=== PATIENT | female | born 1970 | race Caucasian/White ===

== ENCOUNTER 2019-05-03 07:33 | Day surgery (SDC) | payer BC ==
[2019-05-03] MEDS ORDERED: Dextrose 5%-Lactated Ringers 1,000 ML IV SCH (08:00)
[2019-05-03] MEDS ORDERED: Glycopyrrolate 0.2 MG/ML 2 ML SDV IVPUSH ONE (08:30)
[2019-05-03] MEDS ORDERED: Midazolam 1 MG/ML 2 ML SDV ONE (09:20)
[2019-05-03] MEDS ORDERED: fentaNYL 100 MCG/2 ML SDV ONE (09:20)
[2019-05-03] MEDS ORDERED: Propofol 200 MG/20 ML SDV ONE (09:20)
--- NOTE | 2019-05-10 14:25 | OR ---
DATE OF PROCEDURE: 05/03/2019 PREOPERATIVE DIAGNOSIS: Progressive intolerance of laparoscopic adjustable gastric band. POSTOPERATIVE DIAGNOSIS: Progressive intolerance to laparoscopic adjustable gastric band associated with: 1. Extensive erosion of band into the lumen of the stomach. 2. Marked esophageal dilation of above band. 3. Mild antral gastritis. OPERATIVE PROCEDURE: Esophagogastroduodenoscopy with antral biopsies for CLOtest. ANESTHESIA: IV sedation. INDICATION FOR PROCEDURE: This is a 48-year-old status post laparoscopic adjustable gastric band placement at [facility] in [place] in January 2010. Recently, she has had increasing problems with severe reflux-type symptoms as well as significant weight regain. The plan is to proceed with upper GI endoscopy with biopsies as indicated. Potential risks including bleeding and perforation were discussed and the patient wishes to proceed. DETAILS OF PROCEDURE: The patient was taken to the operating room and placed in a left lateral decubitus position. IV sedation was administered, after which the GI endoscope was passed orally through the length of the esophagus and stomach with retroflexion view of the fundus, thereafter through the pyloric channel into the proximal duodenum. Findings included normal hypopharynx, larynx, upper esophageal sphincter, and esophageal body. As one entered into the more distal esophagus, there was a quite striking dilation present along with retained food and bile within the stomach indicating development of esophageal dysmotility above the band. As one passed through the imprint of the band, the gastric antrum appeared to be somewhat reddened but as one body of the stomach and retroflexion was used to look back toward the banded area, there was a broad area of band erosion with roughly curled at the band circumference now being within the lumen of the stomach. Apart from that, there was some mild antral gastritis and normal pyloric channel and proximal duodenum. At this point, biopsies were obtained from the gastric antrum, sent for CLOtest for H. pylori. Minimal bleeding from the biopsy sites was seen and procedure was then concluded. At this point, we will contact the patient's insurance carrier regarding prior authorization of the laparoscopic adjustable gastric band removal along with closure of the gastric perforation. The patient is on Enbrel for rheumatoid arthritis and this may impair healing of a wound closure, and given this and extent of the erosion, a resectional procedure may be preferable in this case and that will be determined intraoperatively. Her insurance carrier will be contacted regarding this issue. Bennie Shrestha MD /[phone]
== END 2019-05-03 10:42 | disposition home or self-care (01) ==
LOC: JP.SDS 07:33
PROVIDERS: ATTEND Surgery
DX: K95.09 Other complications of gastric band procedure (principal); K29.70 Gastritis, unspecified, without bleeding; K21.9 Gastro-esophageal reflux disease without esophagitis; K22.4 Dyskinesia of esophagus; M06.9 Rheumatoid arthritis, unspecified; R63.5 Abnormal weight gain; Z79.899 Other long term (current) drug therapy
CPT/HCPCS: 43239; 81025; 87081; J2250; J2704; J3010; J3490; J7042

== ENCOUNTER 2019-09-02 07:12 | Inpatient (IN) | payer BC ==
[2019-09-02] MEDS ORDERED: Acetaminophen 500 MG Tab PO ONE (07:15)
[2019-09-02] MEDS ORDERED: Celecoxib 200 MG Cap PO ONE (07:15)
[2019-09-02] MEDS ORDERED: Gabapentin 300 MG Cap PO ONE (07:15)
[2019-09-02] MEDS ORDERED: Scopolamine 1.5 MG Transdermal Patch TRDERM ONE (07:15)
[2019-09-02] MEDS ORDERED: Rocuronium 50 MG/5 ML Vial ONE (07:28)
[2019-09-02] MEDS ORDERED: Glycopyrrolate 0.2 MG/ML 5 ML MDV ONE (07:28)
[2019-09-02] MEDS ORDERED: Succinylcholine 200 MG/10 ML MDV ONE (07:28)
[2019-09-02] MEDS ORDERED: Neostigmine Methylsulfate 1 MG/ML 5 ML Syringe ONE (07:28)
[2019-09-02] MEDS ORDERED: Dexamethasone 4 MG/ML SDV ONE (07:28)
[2019-09-02] MEDS ORDERED: Propofol 200 MG/20 ML SDV ONE (07:28)
[2019-09-02] MEDS ORDERED: Ondansetron 4 MG/2 ML SDV ONE (07:28)
[2019-09-02] MEDS ORDERED: fentaNYL 250 MCG/5 ML SDV ONE (07:28)
[2019-09-02] MEDS ORDERED: Dextrose 5%-Lactated Ringers 1,000 ML IV SCH (07:30)
[2019-09-02] MEDS ORDERED: Ketamine 50 MG in Sodium Chloride 0.9% 49.5 ML IV SCH (08:30)
[2019-09-02] MEDS ORDERED: Ketamine 500 MG/5 ML MDV IV SCH (08:30)
[2019-09-02] MEDS ORDERED: Lidocaine 2% 100 MG/5 ML Syringe IVPUSH SCH (08:30)
[2019-09-02] MEDS ORDERED: cefOXitin 2 GM in Sodium Chloride 0.9% 50 ML IV ONE (08:30)
[2019-09-02] MEDS ORDERED: cefOXitin 2 GM Vial ONE (09:35)
[2019-09-02] MEDS ORDERED: cefOXitin 2 GM in Sodium Chloride 0.9% 50 ML IV SCH (10:00)
[2019-09-02] MEDS ORDERED: ePHEDrine 50 MG/ML SDV ONE (10:50)
[2019-09-02] MEDS ORDERED: Lactated Ringers 1,000 ML ONE (10:55)
[2019-09-02] MEDS ORDERED: hydrOXYzine HCL 100 MG/2 ML SDV IM ONE (12:53)
[2019-09-02] MEDS ORDERED: HYDROmorphone 0.5 MG/0.5 ML Syringe IVPUSH PRN (14:29)
[2019-09-02] MEDS ORDERED: Labetalol 20 MG/4 ML Syringe IVPUSH PRN (14:29)
[2019-09-02] MEDS ORDERED: diphenhydrAMINE 50 MG/ML SDV IVPUSH PRN (14:29)
[2019-09-02] MEDS ORDERED: HYDROmorphone 1 MG/ML Syringe IV PRN (14:29)
[2019-09-02] MEDS ORDERED: Ondansetron 4 MG/2 ML SDV IVPUSH PRN (14:29)
[2019-09-02] MEDS ORDERED: hydrOXYzine HCL 100 MG/2 ML SDV IM PRN (14:29)
[2019-09-02] MEDS ORDERED: Metoclopramide 10 MG/2 ML SDV IVPUSH PRN (14:29)
[2019-09-02] MEDS: Lidocaine 0.4%/D5W 2 GM/500 ML BAG IV SCH (14:36)
[2019-09-02] MEDS: Acetaminophen 325 MG Tab PO SCH ×2 (15:54→21:47)
[2019-09-02] MEDS ORDERED: Pantoprazole 40 MG Vial IVPUSH SCH (16:00)
[2019-09-02] MEDS ORDERED: MVI, Adult with Vitamin K 10 ML, Thiamine 200 MG, Chromium/Copper/Mang/Selen/Zn 1 ML in... IV SCH ×4 (16:00)
[2019-09-02] MEDS: cefOXitin 2 GM in Sodium Chloride 0.9% 50 ML IV SCH ×2 (16:34→21:46)
[2019-09-02] MEDS: Heparin Sodium 5,000 Units/ML Vial SUBCUT SCH (19:37)
[2019-09-02] MEDS: cycloSPORINE Ophth Drops U/D Box of 30 EYEBOTH SCH (20:42)
[2019-09-02] MEDS: Gabapentin 250 MG/5 ML Solution ML 470 ML Bottle PO SCH (20:43)
[2019-09-02] MEDS: Dextrose 5%-Lactated Ringers 1,000 ML IV SCH (23:06)
[2019-09-03] MEDS: Acetaminophen 325 MG Tab PO SCH ×4 (03:59→21:01)
[2019-09-03] MEDS: cefOXitin 2 GM in Sodium Chloride 0.9% 50 ML IV SCH ×3 (04:00→15:29)
[2019-09-03] MEDS ORDERED: Iopamidol 612 MG/ML 50 ML SDV PO ONE (04:01)
--- NOTE | 2019-09-03 05:07 | CRLCR ---
Indication: Status post Nam-en-Y gastric bypass Technique: KUB 2 view Comparison: None Findings/Impression: : Two views of the abdomen demonstrate oral contrast within the distal esophagus and small bowel. There may be a small amount of contrast in the gastric pouch. No definite evidence for oral contrast extravasation. DOREEN drain projects in the left upper quadrant. Nonspecific bowel gas pattern. Dictated by Becky Arce MD @ Sep 03 2019 5:03AM Signed by Dr. Becky Arce @ Sep 03 2019 5:05AM
[2019-09-03] MEDS: Dextrose 5%-Lactated Ringers 1,000 ML IV SCH ×2 (05:15→13:36)
[2019-09-03] MEDS ORDERED: Ondansetron 4 MG Tab.DIS PO PRN (07:46)
[2019-09-03] MEDS: Celecoxib 200 MG Cap PO SCH (08:19)
[2019-09-03] MEDS: Heparin Sodium 5,000 Units/ML Vial SUBCUT SCH ×2 (08:20→20:18)
[2019-09-03] MEDS: cycloSPORINE Ophth Drops U/D Box of 30 EYEBOTH SCH ×2 (08:22→20:18)
[2019-09-03] MEDS: SCOPOLAMINE PATCH CHECK TOP SCH (08:22)
[2019-09-03] MEDS: Gabapentin 250 MG/5 ML Solution ML 470 ML Bottle PO SCH ×3 (08:24→20:18)
[2019-09-03] MEDS: DROSPIRENONE PO SCH (09:02)
[2019-09-03] MEDS: ESTRADIOL PO SCH (09:02)
[2019-09-03] MEDS: Lidocaine 0.4%/D5W 2 GM/500 ML BAG IV SCH (09:35)
--- NOTE | 2019-09-03 10:18 | PN ---
DATE OF SERVICE: 09/03/2019 SUBJECTIVE: Jody is postop day #1. She reports her pain is controlled. She has been up ambulating. Oral intake 720, urine output 1000. Vital signs have been stable. Pain has been controlled. She has no questions or concerns. OBJECTIVE: GENERAL: Jody is a 49-year-old female. VITAL SIGNS: TPR is 98.1, 88, 15, blood pressure 138/86. HEENT: Negative. NECK: Supple. HEART: Regular rate and rhythm. LUNGS: Clear. ABDOMEN: Dressings dry and intact. Abdominal binder is on and DOREEN drain is draining a light pink drainage of 65 mL. EXTREMITIES: Without peripheral edema. ASSESSMENT: Laparoscopic removal of gastric band device and gastric bypass for laparoscopic band erosion and stomach not safely reconstructed. Date of surgery 09/02/2019. Surgeon, Bennie Shrestha MD. PLAN: 1. Communication order 3 med cups per hour or 1 every 20 minutes, record at bedtime. 2. Dressing off, may shower. 3. Step 2 gastric bypass diet with no cereal. Decrease D5LR to 100 mL per hour. 4. Restart her Angeliq 0.25 mg-0.5 mg tablet daily. 5. Zofran ODT 4 mg every 4 hours p.r.n. nausea, vomiting. 6. Good pulmonary toilet. 7. We will evaluate p.r.n. or in a.m. Junie Richey PA-C /[id number]
[2019-09-03] MEDS ORDERED: Pantoprazole 40 MG Delayed-Release Granules 1 Packet PO SCH (16:00)
[2019-09-03] MEDS ORDERED: MVI, Adult with Vitamin K 10 ML, Thiamine 200 MG, Chromium/Copper/Mang/Selen/Zn 1 ML in... IV SCH ×4 (16:00)
[2019-09-04] MEDS: Dextrose 5%-Lactated Ringers 1,000 ML IV SCH (03:09)
[2019-09-04] MEDS: Acetaminophen 325 MG Tab PO SCH ×2 (03:09→10:34)
[2019-09-04] MEDS: cycloSPORINE Ophth Drops U/D Box of 30 EYEBOTH SCH (08:25)
[2019-09-04] MEDS: Gabapentin 250 MG/5 ML Solution ML 470 ML Bottle PO SCH (08:25)
[2019-09-04] MEDS: Celecoxib 200 MG Cap PO SCH (08:25)
[2019-09-04] MEDS: Heparin Sodium 5,000 Units/ML Vial SUBCUT SCH (08:26)
[2019-09-04] MEDS: DROSPIRENONE PO SCH (08:28)
[2019-09-04] MEDS: ESTRADIOL PO SCH (08:28)
[2019-09-04] MEDS ORDERED: Cyanocobalamin (Vitamin B12) 1,000 MCG/ML SDV IM ONE (09:00)
[2019-09-04] MEDS: SCOPOLAMINE PATCH CHECK TOP SCH (10:02)
[2019-09-04] MEDS ORDERED: Magnesium Hydroxide 400 MG/5 ML Susp 30 ML Cup PO ONE (10:30)
--- NOTE | 2019-09-06 08:50 | DISCH ---
FINAL DIAGNOSIS: Intolerance to an erosion of laparoscopic adjustable gastric band with non- reconstructable gastric injury secondary to band erosion. SECONDARY DIAGNOSES: 1. History of gastroesophageal reflux disease. 2. Rheumatoid arthritis. 3. White matter abnormality on MRI of brain. OPERATIVE PROCEDURES: Done on 09/02, diagnostic laparoscopy with: 1. Removal of laparoscopic adjustable gastric band system. 2. Partial gastrectomy with Nam-en-Y gastrojejunostomy. SUMMARY: This 49-year-old presenting with increasing intolerance to laparoscopic adjustable gastric band. On preoperative endoscopy, she was noted to have a band erosion and is undergoing removal of the band. She was made aware of possibility that the degree of injury to the stomach may require resectional procedure rather than simply closure of the opening in the stomach. The latter was, in fact, what was seen at the time of surgery with roughly half of the circumference of the area of the imprint of the band eroded through, making closure of this highly problematic in terms of underlying safety as well as likelihood of developing stricturing. Given this, the proximal stomach was resected and Nam-en-Y reconstruction undertaken. Postoperatively, she has had no significant problems. She is tolerating Tylenol and Celebrex for pain. She will be discharged to home on Tylenol 650 to 1000 mg q.6 hours p.r.n. pain. I don't think she will need additional Celebrex. Otherwise, she will continue her usual home medications and holding the MVI and other supplements until after her first appointment, which will be with Junie Richey PA-C, at [facility] on 09/13/2019.
--- NOTE | 2019-09-08 11:47 | OR ---
DATE OF PROCEDURE: 09/02/2019 SURGEON: Bennie Shrestha MD PREOPERATIVE DIAGNOSIS: Band erosion with a general intolerance to laparoscopic adjustable gastric band. POSTOPERATIVE DIAGNOSIS: Band erosion with non-reconstructable gastric injury secondary to band erosion. OPERATIVE PROCEDURE: Diagnostic laparoscopy with: 1. Removal of laparoscopic adjustable gastric band system (05327). 2. Partial gastrectomy with Nam-en-Y gastrojejunostomy (80582). ANESTHESIA: General. LOW VOLTAGE TECHNICIAN: Junie Richey PA-C, and LJ Segura3. INDICATIONS FOR PROCEDURE: This is a 49-year-old female presenting with persistent intolerance to her laparoscopic adjustable gastric band. Recent endoscopy confirmed band erosion, and the plan is to proceed with removal of the band system and probable closure of the gastrotomy related to the erosion. Potential risks of the procedure including bleeding, infection, possible leaks from GI tract closures, possible need for gastric resection should the injury created by the band to the stomach not be reasonably safely reconstructible, along with the remote possibility of cardiopulmonary, septic, or hemorrhagic complications leading to , and the patient wishes to proceed. DETAILS OF PROCEDURE: The patient was taken to the operating room and placed in a supine position. After general endotracheal anesthesia was induced, she was converted to a lithotomy position, and the abdomen was prepped and draped. At 15 cm inferior and 5 cm left of the xiphoid process, a transverse incision was made and peritoneal cavity entered under direct vision with an Optiview trocar, inflated to 15 mmHg pressure with CO2. Laparoscope was reinserted. No underlying trocar insertion site injuries were seen. Following this, bilateral transversus abdominis plane blocks were then placed and 5 additional trocars were placed across the upper and mid abdomen. Initially, some adhesions between the omentum and the anterior abdominal wall and then between the liver and the band system were taken down with a combination of Harmonic scalpel and cautery. This revealed the band which at this point had eroded through the wall of the stomach on its anterior and lateral aspects. After freeing of the band, some additional scar was then divided and removed from the tunnel around which the band had been placed around the stomach. Inspection of the area of erosion at this point showed roughly 50% of the circumference of the stomach to be now, at this point, wide open, and given this degree of injury, it was felt that the resectional procedure would be appropriate, as closure of this would likely result in very high rate of both stricturing and/or leaks, potentially putting the patient at serious life-threatening complications. The port tubing was then divided at this point as it exited the abdominal wall and the band and that portion of the port tubing then removed from the operative field. At this point, the greater curvature of the stomach along the upper body was freed up of the omentum with Harmonic scalpel and then the stomach then divided at a point below the level where the band had been located with the KANDACE black loads. This dissection then continued proximally. The lesser curvature vascular attachments were then taken down to a point somewhat above where the band had been present, and the attachments to the more proximal body and fundus were then also divided with Harmonic Scalpel. This then allowed dissection behind the stomach. Care was taken to avoid injury to the splenic artery, which was at this point noted to be quite adherent to the scar around the posterior aspect of the stomach. This would be eventually dissected off with Harmonic scalpel without any vascular injury, and the specimen consisting of the proximal stomach was then delivered from the field, after being divided proximally at a point just immediately below the esophagogastric junction with a KANDACE black load. At this point, the proximal stomach would need to be drained by the small bowel. The ligament of Treitz was identified and small bowel was then traced out 50 cm distal to that point, where it was divided transversely with a KANDACE stapler. Small bowel was then traced out additional 100 cm where the [id number] enteroenterostomy was accomplished with internal firing of the Endo-KANDACE 60 mm stapler, common opening was then closed transversely with the same stapler, and the angles were anastomosed and mesenteric defect approximated with some 0 Ethibond stitch, along with fibrin sealant. The divided end of Nam limb was then brought through an antecolic position up to the level of the proximally divided stomach without tension. The anvil of a 25 mm EEA stapler was then attached to [place] sump-type tube, the latter was brought down through the mouth and taken out a small opening in the proximal divided stomach, allowing the anvil likewise to be pulled down to within that area. The open end of the Nam limb was then used to pass the main body of the EEA stapler, which was brought up the anvil and united with it, thus creating the gastrojejunostomy. Upon removal of stapler, double donuts of mucosa were noted within it. The small bowel was closed off with a vascular staple line. Gastrojejunostomy was reinforced with 3-0 Vicryl seromuscular stitch, along with fibrin sealant. Leak test was accomplished with injection of 120 mL of air in the proximal stomach while being submerged with antibiotic-containing saline solution. No leaks were identified. A single Hemanth-Singh drain was then taken out through the left lateral trocar site and positioned adjacent to the gastrojejunostomy, from there up into the area of the splenic fossa. At that point, no further intraabdominal problems were noted. Trocars were removed, peritoneal cavity deflated, and incisions closed with some 4-0 Vicryl skin stitch. The fascia at the left lateral trocar site, which had to be opened up somewhat to allow removal of the gastric specimen, was closed off at the fascia level as well with 0 Vicryl stitch. Attention was taken to removal of the band port. The lower to right-sided incision was adjacent to that and this was enlarged somewhat allowing dissection down onto the port, which was dissected free from the surrounding soft tissues and removed. This incision was then closed with some 3-0 and 4-0 Vicryl stitch deep and remainder of the incisions were closed at skin level with 4-0 Vicryl skin stitch and dressing was applied. The patient was taken to the recovery room in satisfactory condition. There were no evident complications. Physician healthcare administrative assistant, Junie Richey, played an essential role in assisting in this case, helping to position the patient, retract structures as needed, as well as suturing and cutting sutures when indicated. Her presence improved patient safety and decreased operative time. Bennie Shrestha MD /[id number]
[2019-09-10] MEDS ORDERED: ENBREL 50 MG SUBCUT SCH (09:00)
== END 2019-09-04 10:30 | disposition home or self-care (01) | DRG 222 ==
LOC: JP.SDSSCHI 07:12 → JP.SDS 07:12 → EDSTATUS 10:30 → JP.MS 13:00
PROVIDERS: ADMIT Surgery; ATTEND Surgery
PROC: 0DP64CZ Removal of Extraluminal Device from Stomach, Percutaneous Endoscopic Approach (ICD-10-PCS; principal; 2019-09-02)
PROC: 0D164ZA Bypass Stomach to Jejunum, Percutaneous Endoscopic Approach (ICD-10-PCS; 2019-09-02)
PROC: 0DB64ZZ Excision of Stomach, Percutaneous Endoscopic Approach (ICD-10-PCS; 2019-09-02)
DX: K95.09 Other complications of gastric band procedure (principal); K31.9 Disease of stomach and duodenum, unspecified; K21.9 Gastro-esophageal reflux disease without esophagitis; M06.9 Rheumatoid arthritis, unspecified; G89.29 Other chronic pain; Y83.8 Other surgical procedures as the cause of abnormal reaction of the patient, or of later complication, without mention of misadventure at the time of the procedure; Z98.890 Other specified postprocedural states; Z98.84 Bariatric surgery status; Z79.899 Other long term (current) drug therapy
CPT/HCPCS: 36415; 74240; 81025; 82728; 82962; 83735; 84100; 85027; 86850; 86900; 86901; 88300; 88307; A9270-GY; C9113; J0171; J0330; J0694; J1100; J1644; J2001; J2405; J2704; J2710; J2795; J3010; J3410; J3411; J3420; J3490; J7050; J7120; J7121; Q9967